=== PATIENT | female | born 1965 | race Caucasian/White ===

== ENCOUNTER → 2017-03-05 | Outpatient (CLI) | payer BC | LOC: MC.RAD 10:32 | DX: Z12.31 Encounter for screening mammogram for malignant neoplasm of breast (principal) ==

== ENCOUNTER → 2017-03-05 | Outpatient (CLI) | payer BC | LOC: COL.RAD 09:36 | DX: E04.1 Nontoxic single thyroid nodule (principal) ==

== ENCOUNTER 2019-12-08 09:45 | Day surgery (SDC) | payer BC ==
[~2019-12-08] VITALS: Ht 162.6 cm; Wt 74.9 kg
[2019-12-08 10:08] VITALS: BP 115/75; PULSE 58; TEMP 98.2
[2019-12-08] MEDS ORDERED: PROTONIX 40MG T40 MG PO (10:34)
[2019-12-08] MEDS ORDERED: ASPIRIN 81M81 MG/TA2 PO (10:34)
[2019-12-08] MEDS ORDERED: NORVASC 10MG10 MG PO (10:35)
[2019-12-08] MEDS ORDERED: LIPITOR20 MG PO (10:35)
[2019-12-08] MEDS ORDERED: WELLBUTRIN XL150 MG PO (10:36)
[2019-12-08] MEDS ORDERED: CELEXA40 MG PO (10:36)
[2019-12-08] MEDS ORDERED: FLONASEALLERGY NS (10:37)
[2019-12-08] MEDS ORDERED: LOPRESSOR100 MG PO (10:38)
[2019-12-08] MEDS ORDERED: PRINIVIL40 MG PO (10:38)
[2019-12-08] MEDS ORDERED: NITROSTAT0.4 MG/TAB SL (10:39)
[2019-12-08 11:50] VITALS: BP 95/68; PULSE 57
--- NOTE | 2019-12-08 11:50 | NUR ---
Patient returns to GI [facility] and transfers from cart to recliner with two person assist. IV fluids infusing and denies pain or nausea. Call light in reach and given Pepsi to drink.
--- NOTE | 2019-12-08 11:55 | NUR ---
Dr. Florentino here to talk with the patient and brother. All questions answered.
[2019-12-08 12:05] VITALS: BP 104/66; PULSE 49
--- NOTE | 2019-12-08 12:05 | NUR ---
Eating muffin and sipping on Pepsi. Denies abdominal pain or nausea.
[2019-12-08 12:20] VITALS: BP 105/59; PULSE 51
--- NOTE | 2019-12-08 12:20 | NUR ---
IV discontinued and patient dresses self. Given dismissal instructions and voices understanding of these.
--- NOTE | 2019-12-08 12:24 | NUR ---
Patient dismissed to home driven by brother per private vehicle and taken to the front door per wheelchair and assisted into car this RN with all dismissal instructions in hand.
== END 2019-12-08 12:22 | disposition home or self-care (01) ==
LOC: SDCO 09:45
DX: Z12.11 Encounter for screening for malignant neoplasm of colon (principal); D12.5 Benign neoplasm of sigmoid colon; I10 Essential (primary) hypertension; G47.33 Obstructive sleep apnea (adult) (pediatric); I25.10 Atherosclerotic heart disease of native coronary artery without angina pectoris; K21.9 Gastro-esophageal reflux disease without esophagitis; Z95.1 Presence of aortocoronary bypass graft; Z90.710 Acquired absence of both cervix and uterus; Z79.82 Long term (current) use of aspirin; Z79.52 Long term (current) use of systemic steroids
CPT/HCPCS: J2704; J7030

== ENCOUNTER 2021-05-19 11:26 | Inpatient (IN) | payer BC ==
[~2021-05-19] VITALS: Ht 162.6 cm; Wt 77.4 kg
[~2021-05-19 11:26] MED LIST: ASPIRIN 81M81 MG/TA2 PO; CELEXA40 MG PO; FLONASEALLERGY NS; LIPITOR20 MG PO; LOPRESSOR100 MG PO; NITROSTAT0.4 MG/TAB SL; NORVASC 10MG10 MG PO; PRINIVIL40 MG PO; PROTONIX 40MG T40 MG PO; WELLBUTRIN XL150 MG PO
[2021-06-02] VITALS (12 sets, daily range): BP systolic 95–123; BP diastolic 56–70; PULSE 56–70; TEMP 98–98.7
[2021-06-02] MEDS ORDERED: CELEXA 20MG20 MG/TAB PO (06:24)
[2021-06-02] MEDS ORDERED: ZESTRIL 20MG TA20 MG PO (06:25)
--- NOTE | 2021-06-02 07:00 | NUR ---
The patient ambulated back to [facility] independently using a steady gait and appeaerd to tolerate the activity well. Vital signs obtained. Consent signed. 18G IV started in right wrist on second attempt, blood obtained from IV start for re-type as ordered. LR infusing without difficulty. Assessment completed. Call light is within reach. Lights turned down and given a fresh warm blanket. Will continue to monitor the patient.
--- NOTE | 2021-06-02 13:15 | NUR ---
Patient alert and oriented, answers questions appropriately. See assessment. Abdomen soft, tender, non distended. Bowel sounds hypoactive x4 quads. No flatus. Voiding adequate amounts. ERAS protocol reviewed with patient. No c/o at this time.
--- NOTE | 2021-06-02 13:43 | NUR ---
First visit from the tablet tester. No needs right now.
--- NOTE | 2021-06-02 16:01 | NUR ---
iron worker foreman met with patient to discuss discharge planning. Patient states she plans to return home upon discharge and is independent with her activities of daily living. Patient states she does not have difficulty obtaining her medications. Patient state she does not have advance directives and worker provided her a copy to review. Worker offered assistance with completion of directives if desired.
--- NOTE | 2021-06-02 20:15 | NUR ---
Pt. sitting up in bed at this time. Pt. is A&OX3, assessment complete. INT to rt. wrist patent. Pt. reports pain at a 2 on pain scale at this time. Pt. denies further needs. call light within reach.
[2021-06-03 03:56] VITALS: BP 126/60; PULSE 60; TEMP 97.6
[2021-06-03 06:13] LABS: HEMOGLOBIN 10.4 g/dl (12.5-16.0)
[2021-06-03 06:14] LABS: HEMATOCRIT 31.5 % (37.0-47.0)
[2021-06-03 06:22] LABS: CREATININE, serum 0.69 (0.52-1.25); POTASSIUM 4.3 mmol/L (3.4-5.0)
[2021-06-03 07:18] VITALS: BP 139/71; PULSE 58; TEMP 98
--- NOTE | 2021-06-03 10:30 | NUR ---
Patient is doing well this morning. She denies nausea. Patient stated she has a headache. She stated she thought it was because she had not had her medications in a few days. Also discussed it being due to not smoking. She has been up walking in the room and halls without issues. No pain to abdomen. No other changes at this time. Call light within reach.
[2021-06-03 11:26] VITALS: BP 160/76; PULSE 61; TEMP 98.1
--- NOTE | 2021-06-03 13:00 | NUR ---
Patient is discharging home. Discharge instructions discussed with patient. No questions verbalized. INT discontinued. Office will call with follow up appointment. All belongings packed up and sent with patient. Copies of discharge instructions sent with patient. Patient walked out via wheel chair by Tricia VOGEL.
[2021-06-16] MEDS ORDERED: NORCO 325 MG-51 TAB PO (13:38)
== END 2021-06-03 13:00 | disposition home or self-care (01) | DRG 615 ==
LOC: INPTSU 06-02 06:06 → SURG 06-02 07:30
PROVIDERS: ADMIT Urology
PROC: 8E0W4CZ Robotic Assisted Procedure of Trunk Region, Percutaneous Endoscopic Approach (ICD-10-PCS; 2021-06-02)
PROC: 0GT24ZZ Resection of Left Adrenal Gland, Percutaneous Endoscopic Approach (ICD-10-PCS; principal; 2021-06-02 07:30)
DX: D35.02 Benign neoplasm of left adrenal gland (principal)
CPT/HCPCS: A4314; A9284; J0330; J0690; J1100; J1885; J2405; J2704; J3010; J7120